=== PATIENT | female | born 1985 | race African-American/Black ===

== ENCOUNTER 2017-09-17 14:21 | Emergency (ER) | payer BC, OTHER ==
[~2017-09-17] VITALS: Ht 167.6 cm; Wt 115.6 kg
[~2017-09-17 14:21] MED LIST: BENTYL10 MG PO; DIAMOX250 MG PO; DOXYCYCLINE HY100 MG PO; FLAGYL500 MG PO; K-DUR20 MEQ PO; NAPROSYN500 MG PO; NORCO 5/3251 TABLET PO; OXYCODONE-ACET1 EACH PO; PERCOCET 5/31 TABLET PO; PLAQUENIL200 MG PO; TOPAMAX100 MG PO; ULTRAM50 MG PO; ZOFRAN ODT4 MG PO; ZOFRAN4 MG PO
[2017-09-17 17:30] LABS: HEMATOCRIT 39.7 % (36.0-46.0); MCH 28.6 PG (29.0-34.0); MCHC 33.2 G/DL (30.0-36.0); MCV 85.9 FL (83-99); RBC DIS.WIDTH-CV 12.4 % (11.8-14.6); RBC DIS.WIDTH-SD 38.5 % (39-53); RED BLOOD COUNT 4.62 M/uL (3.80-5.20); WHITE BLOOD COUNT 6.2 K/uL (4.1-10.2)
[2017-09-17 17:47] LABS: CHLORIDE 106 mEq/L (99-109); POTASSIUM 3.4 mEq/L (3.7-5.4); SODIUM 139 mEq/L (136-147)
[2017-09-17 17:49] LABS: GLUCOSE 92 mg/dL (70-99)
[2017-09-17 17:50] LABS: ANION GAP 13 MEQ/L (2-14)
[2017-09-17 17:53] LABS: GFR ESTIMATE (CALCULATED) > 59 mL/min/; UREA NITROGEN (BUN) 6 mg/dL (9-23)
[2017-09-17 18:44] LABS: PLAT.SUFFICIENCY ADEQUATE; PLATELET CLUMPS PRESENT - PLATELET COUNT APPEARS ADQ.; PLATELET COUNT UNABLE TO REPORT K/uL (156-360)
[2017-09-17 19:19] LABS: ADD MIUA? NO; BILIRUBIN NEGATIVE; BLOOD NEGATIVE; COLOR YELLOW ((YELLOW)); GLUCOSE (STRIP) NEGATIVE; KETONES NEGATIVE; LEUKOCYTES NEGATIVE; NITRITE NEGATIVE; PROTEIN (STRIP) NEGATIVE; SPECIFIC GRAVITY 1.009 (1.000-1.030); UROBILINOGEN 0.2 MG/DL (0.2-1.0)
[2017-09-17] MEDS ORDERED: PERCOCET 5/31 TABLET PO (19:39)
[2017-09-17] MEDS ORDERED: VALIUM5 MG PO (19:40)
[2017-09-17 19:56] VITALS: BP 167/114
== END 2017-09-17 19:57 | disposition home or self-care (01) ==
LOC: EME 14:21
PROVIDERS: Physician Assistant
DX: S76.011A Strain of muscle, fascia and tendon of right hip, initial encounter (principal); M54.5 Low back pain; M32.9 Systemic lupus erythematosus, unspecified; X50.0XXA Overexertion from strenuous movement or load, initial encounter; Y93.89 Activity, other specified; F17.200 Nicotine dependence, unspecified, uncomplicated; Z88.8 Allergy status to other drugs, medicaments and biological substances
CPT/HCPCS: 73502; 80048; 81003; 85027; 99281; 99284; J2270; J3010

== ENCOUNTER 2018-03-09 08:31 | Emergency (ER) | payer BC, OTHER ==
[~2018-03-09] VITALS: Ht 167.6 cm; Wt 111.0 kg
[~2018-03-09 08:31] MED LIST changes: +VALIUM5 MG PO
[2018-03-09 13:15] VITALS: BP 169/96
== END 2018-03-09 13:16 | disposition home or self-care (01) ==
LOC: EME 08:31
DX: G89.29 Other chronic pain (principal); M25.551 Pain in right hip; M32.9 Systemic lupus erythematosus, unspecified; Z79.52 Long term (current) use of systemic steroids; Z86.718 Personal history of other venous thrombosis and embolism; F17.200 Nicotine dependence, unspecified, uncomplicated
CPT/HCPCS: 73502; 99281; 99284; J1170; J1885; J3010

== ENCOUNTER 2018-05-19 13:11 | Emergency (ER) | payer OTHER ==
[~2018-05-19] VITALS: Ht 167.6 cm; Wt 109.5 kg
[2018-05-19] MEDS ORDERED: ULTRAM50 MG PO (15:13)
[2018-05-19 15:45] VITALS: BP 151/94
== END 2018-05-19 15:46 | disposition home or self-care (01) ==
LOC: EME 13:11
DX: G89.29 Other chronic pain (principal); M87.9 Osteonecrosis, unspecified; M32.9 Systemic lupus erythematosus, unspecified; Z86.718 Personal history of other venous thrombosis and embolism; F17.200 Nicotine dependence, unspecified, uncomplicated
CPT/HCPCS: 99281; 99283